=== PATIENT | male | born 1950 | race Native Hawaiian/Other Pacific Islander ===

== ENCOUNTER 2017-01-21 13:22 | Outpatient (CLI) | payer OTHER, BC ==
[2017-01-21 13:52] LABS: PLATELET COUNT 256 K/uL (142-355)
[2017-01-21 14:08] LABS: POTASSIUM 3.7 mmol/L (3.6-5.2)
== END 2017-01-21 14:22 | disposition home or self-care (01) ==
LOC: LAB 13:22
PROVIDERS: Nurse Practitioner Family
DX: I10 Essential (primary) hypertension (principal); I48.91 Unspecified atrial fibrillation; E78.00 Pure hypercholesterolemia, unspecified; Z79.899 Other long term (current) drug therapy; R39.198 Other difficulties with micturition; D64.89 Other specified anemias; E55.9 Vitamin D deficiency, unspecified
CPT/HCPCS: 80053; 80061; 82306; 82607; 83036; 84154; 84439; 84443; 85027

== ENCOUNTER 2017-07-15 13:07 | Outpatient (CLI) | payer BC ==
[2017-07-15 14:21] LABS: PLATELET COUNT 229 K/uL (142-355)
[2017-07-15 14:40] LABS: POTASSIUM 3.8 mmol/L (3.6-5.2)
== END 2017-07-15 19:12 | disposition home or self-care (01) ==
LOC: LABW 13:07
PROVIDERS: Nurse Practitioner Family
DX: J84.112 Idiopathic pulmonary fibrosis (principal); M32.19 Other organ or system involvement in systemic lupus erythematosus; R53.83 Other fatigue; Z79.891 Long term (current) use of opiate analgesic; Z79.899 Other long term (current) drug therapy; Z51.81 Encounter for therapeutic drug level monitoring
CPT/HCPCS: 80053; 82784; 85027; 85651; 86140; 86160; 86162; 86225

== ENCOUNTER 2021-03-14 10:43 | Emergency (ER) | payer OTHER ==
[~2021-03-14] VITALS: Ht 193 cm; Wt 123.4 kg
[2021-03-14 11:14] LABS: PLATELET COUNT 243 K/uL (142-355); POTASSIUM 4.1 mmol/L (3.6-5.2); SODIUM 137 mmol/L (136-145)
[2021-03-14 11:21] LABS: PARTIAL THROMBOPLASTIN TIME 31.7 SECONDS (24.5-33.6)
[2021-03-14 13:22] VITALS: BP 155/90; TEMP 98
== END 2021-03-14 13:23 | disposition short-term general hospital (02) ==
LOC: ED 10:43
PROVIDERS: Family Medicine
DX: R41.82 Altered mental status, unspecified (principal); I48.91 Unspecified atrial fibrillation; Z11.52 Encounter for screening for COVID-19
CPT/HCPCS: 80053; 84484; 85027; 85610; 85730; 87635; 93005; 96374; 99285; J1885; U0003